=== PATIENT | male | born 1970 | race Caucasian/White ===

== ENCOUNTER → 2018-08-10 | Outpatient (CLI) | payer BC | LOC: SUN.DIA 13:01 | DX: E11.9 Type 2 diabetes mellitus without complications (principal) | CPT/HCPCS: G0108 ==

== ENCOUNTER → 2018-09-05 | Outpatient (CLI) | payer BC | LOC: SUN.DIA 14:05 | DX: E11.9 Type 2 diabetes mellitus without complications (principal) ==

== ENCOUNTER → 2018-09-14 | Outpatient (CLI) | payer BC | LOC: SUN.DIA 09:30 | DX: E11.9 Type 2 diabetes mellitus without complications (principal) | CPT/HCPCS: G0109 ==

== ENCOUNTER → 2018-09-28 | Outpatient (CLI) | payer BC | LOC: SUN.DIA 09-21 14:50 | DX: E11.9 Type 2 diabetes mellitus without complications (principal) | CPT/HCPCS: G0109 ==

== ENCOUNTER 2022-01-24 12:39 | Inpatient (IN) | payer BC ==
[~2022-01-24] VITALS: Ht 175.3 cm; Wt 71.7 kg
[2022-01-24] VITALS (463 sets, daily range): BP systolic 118–122; BP diastolic 69–81; PULSE 71–76; TEMP 97.8–98.8; O2SAT 67–100
[2022-01-24 13:23] LABS: BASO % 0.2 % (0.0-2.0); EOS % 0.2 % (0.0-4.0); GRAN # 10.8 K/mm3 (1.4-6.5); GRAN % 87.1 % (42.2-75.2); HEMATOCRIT 46.9 % (42.0-52.0); LYMPH # 0.9 K/mm3 (1.2-3.4); LYMPH % 7.4 % (20.0-51.0); MEAN CELL VOLUME 89 fl (80.0-100.0); MEAN CORPUSCULAR HEMOGLOBIN 30 pg (27-31); MEAN CORPUSCULAR HGB CONC 34 g/dl (33.0-37.0); MEAN PLATELET VOLUME 12.3 fl (7.4-10.4); MONO # 0.6 K/mm3 (0.1-0.6); MONO % 4.9 % (1.7-9.3); PLATELET COUNT 118 K/mm3 (130-400); RED BLOOD COUNT 5.26 M/mm3 (4.20-5.60); REDCELL DISTRIBUTION WIDTH-CV 11.9 % (11.5-14.5)
[2022-01-24 13:28] LABS: COLLECTION METHOD CLEAN CATCH
[2022-01-24 13:37] LABS: ALBUMIN 4.6 gm/dL (3.5-5.0); BILIRUBIN,TOTAL 0.8 mg/dL (0.2-1.2); CALCIUM 9.4 mg/dL (8.4-10.2); CREATININE, serum 1.39 mg/dL (0.72-1.25); POTASSIUM 3.9 mmol/L (3.5-4.5); TOTAL PROTEIN 7.5 gm/dL (6.2-8.1)
[2022-01-24] MEDS ORDERED: FLOMAX 0.40.4 MG/CAP PO (13:40)
[2022-01-24] MEDS ORDERED: PERCOCET 325 MG1 TA2 PO (13:41)
[2022-01-24] MEDS ORDERED: ZOFRAN ODT4 MG PO (13:41)
[2022-01-24] MEDS ORDERED: NOVOLOG FLEX100 U/ML SQ (13:42)
[2022-01-24] MEDS ORDERED: LIPITOR 10MG10 MG PO (13:43)
[2022-01-24] MEDS ORDERED: LEVEMIR FLEX100 U/ML SQ (13:43)
[2022-01-24 13:53] LABS: MUCOUS Present (NOT PRESENT); PH 5 (5-8); SQUAMOUS EPITHELIAL None Seen /hpf (0-10); URINE APPEARANCE Hazy (CLEAR/HAZY); URINE BACTERIA None Seen /hpf (NONE SEEN); URINE BLOOD 3+ (NEGATIVE); URINE COLOR Yellow (YELLOW); URINE GLUCOSE 3+ (NEGATIVE); URINE KETONE 2+ (NEGATIVE); URINE NITRATE Negative (NEGATIVE); URINE PROTEIN(semi-quant) 1+ (NEGATIVE); URINE RBC >50 /hpf (0-2); URINE UROBILINOGEN Negative (NEGATIVE); URINE WBC 0-2 /hpf (0-2)
--- NOTE | 2022-01-24 18:38 | NUR ---
PER PHYSICIAN, PT IS ABLE TO ORDER AN ADA DIET.
[2022-01-24 18:41] LABS: CALCIUM 8.5 mg/dL (8.4-10.2); CREATININE, serum 1.17 mg/dL (0.72-1.25); MAGNESIUM 1.6 mg/dL (1.6-2.6); POTASSIUM 4.5 mmol/L (3.5-4.5)
--- NOTE | 2022-01-24 22:18 | NUR ---
BEDSIDE SHIFT REPORT RECEIVED FROM MOHINDER MARTINEZ. PT CURRENTLY RESTING IN BED. NO C/O PAIN OR DISCOMFORT AT THIS TIME. LINES RUNNING ACCORDING TO REPORT (SEE DRIP FLOW SHEET). VSS, NO ACUTE CHANGES NOTED AT THIS TIME.
[2022-01-25] VITALS (331 sets, daily range): BP systolic 119–133; BP diastolic 65–93; PULSE 53–84; TEMP 98–99.3; O2SAT 56–100
[2022-01-25 00:56] LABS: CALCIUM 8.6 mg/dL (8.4-10.2); CREATININE, serum 1.13 mg/dL (0.72-1.25); POTASSIUM 3.7 mmol/L (3.5-4.5)
[2022-01-25 05:37] LABS: BASO % 0.3 % (0.0-2.0); EOS # 0.1 K/mm3 (0.0-0.7); EOS % 1.4 % (0.0-4.0); GRAN # 5.5 K/mm3 (1.4-6.5); GRAN % 68.1 % (42.2-75.2); HEMATOCRIT 37.3 % (42.0-52.0); LYMPH # 1.6 K/mm3 (1.2-3.4); LYMPH % 19.8 % (20.0-51.0); MEAN CELL VOLUME 89 fl (80.0-100.0); MEAN CORPUSCULAR HEMOGLOBIN 30 pg (27-31); MEAN CORPUSCULAR HGB CONC 34 g/dl (33.0-37.0); MEAN PLATELET VOLUME 13.5 fl (7.4-10.4); MONO # 0.8 K/mm3 (0.1-0.6); MONO % 9.9 % (1.7-9.3); PLATELET COUNT 93 K/mm3 (130-400); RED BLOOD COUNT 4.21 M/mm3 (4.20-5.60); REDCELL DISTRIBUTION WIDTH-CV 12.2 % (11.5-14.5)
[2022-01-25 05:41] LABS: HEMOGLOBIN 12.8 g/dl (13.5-18.0)
[2022-01-25 05:52] LABS: CALCIUM 8.4 mg/dL (8.4-10.2); CREATININE, serum 0.92 mg/dL (0.72-1.25); POTASSIUM 3.6 mmol/L (3.5-4.5)
--- NOTE | 2022-01-25 08:00 | NUR ---
DURING ASSESSMENT PT IS ALERT AND ORIENTED.ASSESSMENT PERFORMED.VSS. INSULIN DRIP RUNNING AT 0.5U/HR WITH D5 1/2 NS AT 200ML/HR. PT COMPLAINS OF BACK PAIN AT THIS TIME. WILL TREAT PER ORDERS. CALL LIGHT WITHIN REACH.
--- NOTE | 2022-01-25 10:34 | NUR ---
Initial visit; Patient thanked Digital Photo Printer for looking in on him and offering encouragement and God's blessings. Digital Photo Printer wished Omar well, it was a pleasure meeting him.
--- NOTE | 2022-01-25 12:44 | NUR ---
central office worker met with patient to complete intake and discuss discharge plan. Patient reports that he lives at home with his Georgie ([phone]). Georgie present at bedside. Patient is independent with his ADL's and does not utilize any DME to assist with mobillity. He has no home oxygen needs. PCP is Dr. Proctor and he utilizes [facility] for prescriptions. Patient states that he does not have a DPOA-HC established and is not interested in creating one at this time. Patient is planning on returning home once medically ready.
--- NOTE | 2022-01-25 14:25 | NUR ---
PT LEFT FOR OR AT THIS TIME.
--- NOTE | 2022-01-25 16:00 | NUR ---
PT RETURNED TO ICU ROOM FOR OR. PLACED ON MONITOR. POST OP CHECKS. PT DROWSY BUT RESPONDS TO VOICE. CALL LIGHT WITHIN REACH.
--- NOTE | 2022-01-25 20:24 | NUR ---
Assessment complete and charted. Patient alert and orientated. Patient reported 3/10 flank pain with burning with urination. Patient given PRN tylenol. Denies other needs. Call light in reach.
[2022-01-26] VITALS (535 sets, daily range): BP systolic 108–116; BP diastolic 72–80; PULSE 59–71; TEMP 98.2–98.9; O2SAT 89–100
[2022-01-26 05:44] LABS: BASO % 0.3 % (0.0-2.0); EOS # 0.2 K/mm3 (0.0-0.7); EOS % 2.8 % (0.0-4.0); GRAN % 62.7 % (42.2-75.2); HEMOGLOBIN 13.1 g/dl (13.5-18.0); LYMPH # 1.6 K/mm3 (1.2-3.4); LYMPH % 25.1 % (20.0-51.0); MEAN CELL VOLUME 87 fl (80.0-100.0); MEAN CORPUSCULAR HEMOGLOBIN 30 pg (27-31); MEAN CORPUSCULAR HGB CONC 35 g/dl (33.0-37.0); MEAN PLATELET VOLUME 12.7 fl (7.4-10.4); MONO # 0.6 K/mm3 (0.1-0.6); MONO % 8.9 % (1.7-9.3); PLATELET COUNT 98 K/mm3 (130-400); RED BLOOD COUNT 4.36 M/mm3 (4.20-5.60); REDCELL DISTRIBUTION WIDTH-CV 11.9 % (11.5-14.5)
[2022-01-26 06:07] LABS: CALCIUM 8.4 mg/dL (8.4-10.2); CREATININE, serum 0.73 mg/dL (0.72-1.25); POTASSIUM 3.5 mmol/L (3.5-4.5)
--- NOTE | 2022-01-26 07:10 | NUR ---
Report given to MICHELLE Johnson
--- NOTE | 2022-01-26 08:00 | NUR ---
PT ALERT AND ORIENTED.ASSESSMENT COMPLETED.VSS.PT COMPLAINS OF 1/10 BACK PAIN. PT STATES THERE IS NO NEED FOR PAIN INTERVENTIONS AT THIS TIME. WILL CONTINUE TO MONITOR. CALL LIGHT WITHIN REACH.
[2022-01-26] MEDS ORDERED: LEVSIN0.125 M1 SL (08:13)
[2022-01-26] MEDS ORDERED: AZO URINARY PAI95 MG PO (08:14)
[2022-01-26] MEDS ORDERED: CEPHALEXIN500 M1 PO (11:18)
--- NOTE | 2022-01-26 12:22 | NUR ---
PT GIVEN DISCHARGE INSTRUCTIONS AND EDUCATION. VERBALIZES UNDERSTANDING. PT AMBULATORY WITH A STEADY GAIT. HERE TO TAKE PT HOME. DISCHARGED AT THIS TIME.
== END 2022-01-26 12:22 | disposition home or self-care (01) | DRG 659 ==
LOC: COL.ER 12:39 → ICU 15:25
PROVIDERS: Emergency Medicine; Student in an Organized Health Care Education/Training Program; Urology; ADMIT Internal Medicine
PROC: 0T778DZ Dilation of Left Ureter with Intraluminal Device, Via Natural or Artificial Opening Endoscopic (ICD-10-PCS; principal; 2022-01-25 14:30)
PROC: 0T578ZZ Destruction of Left Ureter, Via Natural or Artificial Opening Endoscopic (ICD-10-PCS; 2022-01-25 14:30)
PROC: BT1F1ZZ Fluoroscopy of Left Kidney, Ureter and Bladder using Low Osmolar Contrast (ICD-10-PCS; 2022-01-25 14:30)
DX: N20.2 Calculus of kidney with calculus of ureter (principal); E11.10 Type 2 diabetes mellitus with ketoacidosis without coma; N17.9 Acute kidney failure, unspecified; D72.829 Elevated white blood cell count, unspecified; E78.5 Hyperlipidemia, unspecified; E11.65 Type 2 diabetes mellitus with hyperglycemia; Z87.442 Personal history of urinary calculi; Z91.010 Allergy to peanuts; Z79.4 Long term (current) use of insulin
CPT/HCPCS: 99233-AI; 99239; C1769; C2617; J0696; J1815; J1885; J2270; J2405; J2704; J3010; J7030; J7120; Q9967